=== PATIENT | male | born 1990 | race Caucasian/White ===

== ENCOUNTER 2016-10-01 05:57 | Day surgery (SDC) | payer MEDICAID ==
[~2016-10-01] VITALS: Ht 185.4 cm; Wt 115.0 kg
[~2016-10-01 05:57] MED LIST: ATOR40TA28 PO; CACARB500 PO; IBUP-1681 PO; MULT-1249 PO; OMEP20 PO
[2016-10-01] MEDS ORDERED: SODIUM CHLORIDE 0.9% 1,000 ML IV ONE ×2 (06:07→06:30)
== END 2016-10-01 09:00 | disposition home or self-care (01) ==
LOC: SURGERY 05:57
PROVIDERS: ATTEND Specialist
DX: K29.50 Unspecified chronic gastritis without bleeding (principal); K21.0 Gastro-esophageal reflux disease with esophagitis; K44.9 Diaphragmatic hernia without obstruction or gangrene; I10 Essential (primary) hypertension; E78.00 Pure hypercholesterolemia, unspecified; K76.0 Fatty (change of) liver, not elsewhere classified; E66.9 Obesity, unspecified; M54.9 Dorsalgia, unspecified; F10.21 Alcohol dependence, in remission; F12.90 Cannabis use, unspecified, uncomplicated; Z98.890 Other specified postprocedural states
CPT/HCPCS: 43239; 88305; 88312; C1769; J7030

== ENCOUNTER 2021-06-03 18:19 | Emergency (ER) | payer MEDICAID, OTHER ==
[~2021-06-03] VITALS: Ht 185.4 cm; Wt 108.0 kg
[~2021-06-03 18:19] MED LIST changes: -CACARB500 PO; +CALC500T37 PO; -IBUP-1681 PO; +IBUP-2759 PO
[2021-06-03] MEDS ORDERED: HYDROCODONE/ACETAMINOPHEN 5-325 MG TABLET PO ONE (19:30)
[2021-06-03 19:32] VITALS: BP 132/85
== END 2021-06-03 19:48 | disposition home or self-care (01) ==
LOC: EMS 18:19
DX: S62.633A Displaced fracture of distal phalanx of left middle finger, initial encounter for closed fracture (principal); X58.XXXA Exposure to other specified factors, initial encounter; Y93.89 Activity, other specified; Y92.89 Other specified places as the place of occurrence of the external cause; Y99.8 Other external cause status
CPT/HCPCS: 11740; 99283; 99284

== ENCOUNTER 2021-12-15 09:13 | Emergency (ER) | payer OTHER ==
[~2021-12-15] VITALS: Ht 185.4 cm; Wt 104.5 kg
[2021-12-15] MEDS ORDERED: IBUPROFEN 600 MG TABLET PO ONE (09:45)
[2021-12-15] MEDS ORDERED: IBUP-1554 PO (10:26)
[2021-12-15 11:15] VITALS: BP 130/92
== END 2021-12-15 11:40 | disposition home or self-care (01) ==
LOC: EMS 09:15
DX: S62.325A Displaced fracture of shaft of fourth metacarpal bone, left hand, initial encounter for closed fracture (principal); S62.634A Displaced fracture of distal phalanx of right ring finger, initial encounter for closed fracture; F12.90 Cannabis use, unspecified, uncomplicated; Z98.890 Other specified postprocedural states; X58.XXXA Exposure to other specified factors, initial encounter; Y93.89 Activity, other specified; Y92.89 Other specified places as the place of occurrence of the external cause; Y99.8 Other external cause status
CPT/HCPCS: 99283